=== PATIENT | female | born 1940 | race Caucasian/White ===

== ENCOUNTER 2017-12-15 10:05 | Day surgery (SDC) | payer OTHER ==
[~2017-12-15] VITALS: Ht 154.9 cm; Wt 81.8 kg
[~2017-12-15 10:05] MED LIST: ALLO100 PO; AMLO5; ASPI81CH PO; ATOR10 PO; BUME1 PO; BUME2 PO; CALC.25 PO; COLCHICINE0.6 MG; Ferrous Sulfat325 M2 PO; GLIP10ER PO; GLIP5; GLIP5ER PO; HYDACE5 PO; HYDR1TAB94 PO; Humalog100 UNIT/1 SC; INSULANI; INSULANI SUBQ; INSULANPEN SC; K-Tab10 MEQ PO; LEVSOD100 PO; LEVSOD125 PO; LISI5 PO; METF500 PO; METO100ER PO; METO50ER PO; OSTERA TABLET1 EACH PO; PANT40 PO; PRAV20 PO; PRED1; TOLT4 PO; TRAM50 PO; VITAMIN D32000 UNIT PO; [UNRECOGNIZED DRUG - REMARK]; [UNRECOGNIZED DRUG - REMARK]; [UNRECOGNIZED DRUG - REMARK]; [UNRECOGNIZED DRUG - REMARK]; [UNRECOGNIZED DRUG - REMARK]
[2017-12-15 10:47] LABS: Prothrombin Time Results 10.4 Sec (9.7-11.5)
== END 2017-12-15 22:41 | disposition home or self-care (01) ==
LOC: MHTC 10:05
PROVIDERS: Internal Medicine Interventional Cardiology
PROC: 065Q3ZZ Destruction of Left Saphenous Vein, Percutaneous Approach (ICD-10-PCS; principal; 2017-12-15)
DX: E11.51 Type 2 diabetes mellitus with diabetic peripheral angiopathy without gangrene (principal); I87.2 Venous insufficiency (chronic) (peripheral); E78.5 Hyperlipidemia, unspecified; E03.9 Hypothyroidism, unspecified; Z79.4 Long term (current) use of insulin
CPT/HCPCS: 36415; 36475; 85610; 99152; C1888; C1894; J1644; J2250; J3010; J7040

== ENCOUNTER → 2018-11-03 | Outpatient (CLI) | payer OTHER ==
[~2018-11-03] MED LIST changes: +Detrol LA2 MG PO; +LOSA25 PO
[2018-11-03 13:21] LABS: Creatinine, Urine Random 59.6 mg/dL (27.00-270.00); Protein, Urine Random 12.6 mg/dL (0.0-11.9)
== END | disposition home or self-care (01) ==
LOC: LAB SHORT 09:09 → LAB 09:09
PROVIDERS: Internal Medicine
DX: N18.3 Chronic kidney disease, stage 3 (moderate) (principal)
CPT/HCPCS: 82570; 84156

== ENCOUNTER 2019-01-13 12:02 | Day surgery (SDC) | payer OTHER ==
[~2019-01-13 12:02] MED LIST changes: -ASPI81CH PO; +Aspirin EC81 MG PO; -BUME1 PO; +Bumetanide1 MG PO; -K-Tab10 MEQ PO; +Klor-Con M1010 MEQ PO
== END 2019-01-13 23:27 | disposition home or self-care (01) ==
LOC: WOUND 12:02
DX: R60.0 Localized edema (principal)
CPT/HCPCS: G0463

== ENCOUNTER 2019-01-27 11:55 | Day surgery (SDC) | payer OTHER | END 2019-01-27 23:09 | disposition home or self-care (01) | LOC: WOUND 11:55 | DX: R60.0 Localized edema (principal); E11.42 Type 2 diabetes mellitus with diabetic polyneuropathy; E11.22 Type 2 diabetes mellitus with diabetic chronic kidney disease; N18.3 Chronic kidney disease, stage 3 (moderate); E11.51 Type 2 diabetes mellitus with diabetic peripheral angiopathy without gangrene; I73.9 Peripheral vascular disease, unspecified; I25.10 Atherosclerotic heart disease of native coronary artery without angina pectoris; E78.5 Hyperlipidemia, unspecified; E66.9 Obesity, unspecified; Z68.31 Body mass index [BMI] 31.0-31.9, adult | CPT/HCPCS: G0463 ==

== ENCOUNTER 2019-03-29 11:16 | Inpatient (IN) | payer OTHER ==
[~2019-03-29] VITALS: Ht 154.9 cm; Wt 86.4 kg
[2019-03-29 11:44] LABS: BASOPHILS ABSOLUTE AUTO 0.05 K/mm3 (0.00-0.23); BASOPHILS PERCENT AUTO 1 % (0-2); EOSINOPHILS ABSOLUTE AUTO 0.61 K/mm3 (0.00-0.68); EOSINOPHILS PERCENT AUTO 7 % (0-6); IMMATURE GRAN ABSOLUTE AUTO 0.03 K/mm3 (0.00-0.10); IMMATURE GRAN PERCENT AUTO 0 % (0-1); LYMPHOCYTES ABSOLUTE AUTO 1.29 K/mm3 (0.84-5.20); LYMPHOCYTES PERCENT AUTO 14 % (21-46); MONOCYTES ABSOLUTE AUTO 0.68 K/mm3 (0.16-1.47); MONOCYTES PERCENT AUTO 7 % (4-13); Mean Corpuscular HGB 31.1 pg (26.0-34.0); Mean Corpuscular HGB Conc 32.4 g/dL (31.5-36.5); Mean Corpuscular Volume 96 fL (80-100); Mean Platelet Volume 9.4 fL (9.1-12.4); NEUTROPHILS ABSOLUTE AUTO 6.76 K/mm3 (1.96-9.15); NEUTROPHILS PERCENT AUTO 72 % (41-73); Platelet Count 316 K/mm3 (150-400); RDW Coefficient Variation 13.2 % (11.7-14.2); RDW Standard Deviation 47.2 fL (35.1-46.3); Red Blood Cell Count 3.54 M/mm3 (3.80-5.20); White Blood Cell Count 9.42 K/mm3 (4.00-11.30)
[2019-03-29 12:03] LABS: Alanine Aminotransfer (ALT/SGP 23 U/L (12-78); Albumin, Blood 3.4 g/dL (3.4-5.0); Albumin/Globulin Ratio 0.9 (0.8-1.8); Alk Phos 170 U/L (50-136); Anion Gap 5 mmol/L (6-16); Aspartate Aminotrans (AST/SGOT 19 U/L (12-37); Bilirubin, Total 0.5 mg/dL (0.1-1.0); Blood Urea Nitrogen 31 mg/dL (8-24); Bun/Creatinine Ratio 16.8 (12.0-20.0); CO2, Blood 30 mmol/L (21-32); Calcium, Blood 9.2 mg/dL (8.5-10.1); Chloride, Blood 101 mmol/L (98-108); Creatinine, Blood 1.84 mg/dL (0.40-1.00); Globulin, Blood 3.9 g/dL (2.2-4.0); Glomerular Filtration Rate 28 (60-); Glucose, Blood 128 mg/dL (70-99); Potassium, Blood 4.9 mmol/L (3.5-5.5); Sodium, Blood 136 mmol/L (136-145); Total Protein, Blood 7.3 g/dL (6.4-8.2); Troponin I <0.015 ng/mL (0.000-0.040)
[2019-03-29] MEDS ORDERED: TRULICITY0.75 MG/0. SC (13:52)
[2019-03-29] MEDS ORDERED: PRENATAL + DHA1 EAC1 PO (13:53)
[2019-03-29] MEDS ORDERED: Magnesium500 M1 PO (13:53)
[2019-03-29] MEDS ORDERED: ASCO500 PO (13:54)
[2019-03-29 16:44] LABS: Source, Urine Catheter
[2019-03-29 16:47] LABS: Bilirubin, Urine Neg (Neg); Blood, Urine Neg (Neg); Glucose Qualitative, Urine Neg (Neg); Ketones, Urine Neg (Neg); Leukocyte Esterase, Urine Neg (Neg); Nitrite, Urine Neg (Neg); Protein, Urine Neg (Neg); Urobilinogen, Urine NORM (Normal)
[2019-03-29 17:03] LABS: Appearance, Urine Clear (Clear); Color, Urine Yellow (P-Yellow)
--- NOTE | 2019-03-29 18:58 | NUR ---
SHIFT SUMMARY PT A&OX4, 2LNC, REP OCC SOB, TCDB EDU & ENC. BEDREST, BLE ELEVATED. ONE TIME DOSE METROPROLOL 25 MG GIVEN FOR BP; PT REP NOT TAKING ANY OF HER MEDICATIONS TODAY. GARY PAIN TX'D WITH TYLENOL. ROSMERY PO, DENIES N&V. WEEKS PATENT & DRAINING YELLOW URINE. [address] WCTM & TX PER EMAR UNTIL REPORT GIVEN TO ONCOMING VINCE RN.
[2019-03-30 05:12] LABS: BASOPHILS ABSOLUTE AUTO 0.03 K/mm3 (0.00-0.23); BASOPHILS PERCENT AUTO 0 % (0-2); EOSINOPHILS PERCENT AUTO 6 % (0-6); Hematocrit 33.1 % (33.0-51.0); Hemoglobin 10.6 g/dL (11.5-16.0); IMMATURE GRAN ABSOLUTE AUTO 0.04 K/mm3 (0.00-0.10); IMMATURE GRAN PERCENT AUTO 1 % (0-1); LYMPHOCYTES PERCENT AUTO 15 % (21-46); MONOCYTES ABSOLUTE AUTO 0.87 K/mm3 (0.16-1.47); MONOCYTES PERCENT AUTO 10 % (4-13); Mean Corpuscular HGB 30.3 pg (26.0-34.0); Mean Corpuscular Volume 95 fL (80-100); Mean Platelet Volume 9.5 fL (9.1-12.4); NEUTROPHILS ABSOLUTE AUTO 6.02 K/mm3 (1.96-9.15); NEUTROPHILS PERCENT AUTO 69 % (41-73); Platelet Count 315 K/mm3 (150-400); RDW Coefficient Variation 13.4 % (11.7-14.2); RDW Standard Deviation 46.5 fL (35.1-46.3); White Blood Cell Count 8.76 K/mm3 (4.00-11.30)
[2019-03-30 05:31] LABS: Bun/Creatinine Ratio 15.7 (12.0-20.0); Calcium, Blood 8.9 mg/dL (8.5-10.1); Creatinine, Blood 1.98 mg/dL (0.40-1.00); Potassium, Blood 4.5 mmol/L (3.5-5.5)
--- NOTE | 2019-03-30 06:36 | NUR ---
SHIFT SUMMARY PT IS AN 89 Y/O FEMALE, ADMITTED FOR ACUTE CHF EXACERBATION. SHE IS A&O X 3, AND ON BEDREST. PT REPORTED SOME MILD PAIN IN HER CALVES, AND WAS MEDICATED WITH SCHEDULED ULTRAM AT BEDTIME. PT SLEPT WELL AFTER THAT WITH NO COMPLAINTS OF ACUTE PAIN, NAUSEA OR SOB. VITAL SIGNS STABLE. NO OTHER ACUTE CHANGES IN PT CONDITION NOTED. WILL CONTINUE TO MONITOR AND TREAT PER EMAR UNTIL HAND OFF TO DAY SHIFT RN.
--- NOTE | 2019-03-30 19:51 | NUR ---
SHIFT SUMMARY PATIENT HAD GOOD AMOUNT URINE OUTPUT, WEEKS REMOVED. BILAT LEG EDEMA IMPROVED. CALVES STILL PINK AND WARM TO TOUCH, R SLIGHTLY WORSE. LAST BM 03/28. PT WEANED OFF O2 NC. PT RECEIVED CORRECTIONAL SS HUMALOG FOR BREAKFAST AND LUNCH, BUT CBG WAS 63 FOR DINNER SO DID NOT RECEIVE INSULIN. PATIENT DRANK OJ AND ATE SOME DINNER AND CBG WAS 91. PT IS AMBULATING TO BATHROOM WITH WALKER AND 1 ASSIST, CALLING APPROPRIATELY.
--- NOTE | 2019-03-31 04:45 | NUR ---
SHIFT SUMMARY A/O, ABLE TO MAKE NEEDS KNOWN. COOPERATIVE WITH CARE. CALLS AND ANSWERS QUESTIONS APPROPRIATELY. C/O PAIN/RESTLESS LEGS; MEDICATED PER EMAR. APPEARED TO REST WELL OVERNIGHT. UP WITH FWW TO BATHROOM. VSS/AFEBRILE. NO ACUTE CHANGES NOTED OVERNIGHT. BED REMAINS IN LOWEST POSITION. CALL LIGHT AND BELONGINGS WITHIN REACH. WCTM. REPORT TO ONCOMING RN.
[2019-03-31 04:57] LABS: Base Excess Venous 9.1 mmol/L; PCO2 Venous 41.2 mmHg (38-42); PO2 Venous 65.9 mmHg (38-42)
[2019-03-31 04:58] LABS: BASOPHILS ABSOLUTE AUTO 0.04 K/mm3 (0.00-0.23); BASOPHILS PERCENT AUTO 0 % (0-2); EOSINOPHILS ABSOLUTE AUTO 0.85 K/mm3 (0.00-0.68); EOSINOPHILS PERCENT AUTO 9 % (0-6); Hematocrit 33.3 % (33.0-51.0); Hemoglobin 10.5 g/dL (11.5-16.0); IMMATURE GRAN ABSOLUTE AUTO 0.06 K/mm3 (0.00-0.10); IMMATURE GRAN PERCENT AUTO 1 % (0-1); LYMPHOCYTES ABSOLUTE AUTO 1.61 K/mm3 (0.84-5.20); LYMPHOCYTES PERCENT AUTO 18 % (21-46); MONOCYTES ABSOLUTE AUTO 1.03 K/mm3 (0.16-1.47); MONOCYTES PERCENT AUTO 11 % (4-13); Mean Corpuscular HGB 30.2 pg (26.0-34.0); Mean Corpuscular HGB Conc 31.5 g/dL (31.5-36.5); Mean Corpuscular Volume 96 fL (80-100); Mean Platelet Volume 9.4 fL (9.1-12.4); NEUTROPHILS ABSOLUTE AUTO 5.61 K/mm3 (1.96-9.15); NEUTROPHILS PERCENT AUTO 61 % (41-73); Platelet Count 287 K/mm3 (150-400); RDW Coefficient Variation 13.4 % (11.7-14.2); RDW Standard Deviation 46.6 fL (35.1-46.3); Red Blood Cell Count 3.48 M/mm3 (3.80-5.20)
[2019-03-31 05:23] LABS: Bun/Creatinine Ratio 15.8 (12.0-20.0); Creatinine, Blood 2.22 mg/dL (0.40-1.00); Potassium, Blood 4.8 mmol/L (3.5-5.5)
[2019-03-31 05:31] LABS: Free Thyroxine 1.5 ng/dL (0.70-1.60); Thyroid Stimulating Hormone 0.764 uIU/mL (0.360-4.800); Triiodothyronine, Free 1.85 pg/mL (2.18-3.98)
--- NOTE | 2019-03-31 16:11 | NUR ---
ASSUMED CARE: PT RESTING QUIETLY AT THIS TIME. NO ACUTE DISTRESS OR NEEDS NOTED
--- NOTE | 2019-03-31 17:31 | NUR ---
Spiritual Care intial note: Daria was welcoming of prayer and spiritual encouragement. She lives alone, but her son is visiting from [place] this week. I broached the subject of advanced care palnning, and she was initially receptive to allowing me to help her complete POLST. She told me she is not afraid of dying, and did not want CPR if her heart were to faulter/stop. She then became rather sullen and said she did not want to finish POLST. I immediately changes subjects, and we spoke about her love and pride for her son. She will benefit from further discussion around ACP at some point. Novelty Twister Tender Services will remain available.
--- NOTE | 2019-03-31 17:55 | NUR ---
PT RETURNED FROM PROCEDURE. DROWSY, BUT ANSWERING QUESTIONS. NAUSEATED WITH 100CC YELLOW EMESIS NOTED. ZOFRAN PROVIDED. POST OP VITALS AT THIS TIME
--- NOTE | 2019-03-31 18:04 | NUR ---
SHIFT SUMMARY: SITTING UPRIGHT IN BED EATING DINNER AT THIS TIME. LUNG SOUNDS WITH FINE CRACKLES BUT DENIES NEEDS OR CONCERNS AT THIS TIME.
--- NOTE | 2019-04-01 04:04 | NUR ---
Shift summary: pt states she's feeling much better. No respiratory distress noted. Pt has been sleeping most of shift. Pt anticipating d/c in am.
[2019-04-01 05:09] LABS: Bun/Creatinine Ratio 15.4 (12.0-20.0); Calcium, Blood 8.9 mg/dL (8.5-10.1); Creatinine, Blood 2.8 mg/dL (0.40-1.00); Potassium, Blood 5.1 mmol/L (3.5-5.5)
--- NOTE | 2019-04-01 18:26 | NUR ---
SHIFT SUMMARY PER GROUND SURVEILLANCE SYSTEMS OPERATOR, PATIENT'S TELE RHYTHM CHANGED DURING THE MORNING OF 03/31, TO A.FIB. GROUND SURVEILLANCE SYSTEMS OPERATOR NOT ABLE TO TELL EXACTLY THE TIME, SHE STATES AROUND [id number]. DR VALVERDE STATED HE WAS NOT NOTIFIED OF THIS UNTIL THIS MORNING 04/01. PT IS IN A CONTROLLED RATE A.FIB, SIMILAR TO HER PREVIOUS NSR RATE. RHYTHM CONFIRMED WITH TWO PRINTED STRIPS THIS MORNING. DR VALVERDE WAS GOING TO DC PT BUT HE SWITCHED HER LOVENOX FOR XARELTO, FIRST DOSE GIVEN TODAY. XARELTO SAMPLES OBTAINED FROM CARDIAC OFFICE PER DR VALVERDE'S REQUEST AND PLACED IN PT'S MED DRAWER. PT AMBULATING WITH FWW AND STATES HER DIZZINESS WHEN WALKING HAS DECREASED. DENIES PAIN, SOB, NAUSEA. BLE STILL PINK, PITTED, WITH +2 EDEMA, PT STATES IS CHRONIC.
--- NOTE | 2019-04-02 03:53 | NUR ---
Shift summary: Pt slept well overnight with no c/o discomfort. Pt on telemetry. Pt still in afib in the 50's per telecommunications manager. Pt slept part of night in chair- states its easier to breath. No changes in condition noted overnight.
[2019-04-02 05:24] LABS: Bun/Creatinine Ratio 15.8 (12.0-20.0); Calcium, Blood 8.8 mg/dL (8.5-10.1); Creatinine, Blood 3.29 mg/dL (0.40-1.00); Magnesium, Blood 2.5 mg/dL (1.6-2.4); Potassium, Blood 5.2 mmol/L (3.5-5.5)
[2019-04-02 14:59] LABS: Bilirubin, Urine Neg (Neg); Blood, Urine Neg (Neg); Glucose Qualitative, Urine Neg (Neg); Ketones, Urine Neg (Neg); Leukocyte Esterase, Urine 1+ (Neg); Nitrite, Urine Neg (Neg); Protein, Urine Neg (Neg); Specific Gravity, Urine 1.015 (1.003-1.022); Urobilinogen, Urine NORM (Normal)
[2019-04-02 15:06] LABS: Appearance, Urine Hazy (Clear); Color, Urine Pale Yellow (P-Yellow)
[2019-04-02 15:07] LABS: Bacteria Few /hpf; Red Blood Cells, Urine 0-2 /hpf (0-2); Squamous Epithelial Cells Many /hpf (Few); White Blood Cells, Urine 0-2 /hpf (0-5)
--- NOTE | 2019-04-02 17:21 | NUR ---
SHIFT SUMMARY NO CHANGE IN PATIENT MENTATION OR LEG EDEMA/SYMPTOMS. PATIENT'S KIDNEY FUNCTION IS DECREASED, SO DR CHAMORRO CONSULTED. UA COMPLETED, SMALL AMOUNT OF FLUIDS INFUSED, BLADDER SCAN DONE, AND DAILY WEIGHTS WILL BE DONE. ELIQUIS ORDERED INSTEAD OF XARELTO. XARELTO SAMPLES STILL IN DRAWER. THE CARDIAC OFFICE IS ASSUMED TO BE CLOSED UNTIL THURSDAY. CALL BUTTON IN REACH. WILL CONTINUE TO MONITOR.
--- NOTE | 2019-04-03 04:19 | NUR ---
Shift summary: Pt lungs dimished at bases but no crackles heard. No s/s respiratory distress. VSS. Pt on telemetry- afib at 60. Pt up in chair sleeping most of shift. Pt states it's easier to breath that way. Pt anticipating a possible d/c today.
[2019-04-03 04:35] LABS: BASOPHILS ABSOLUTE AUTO 0.03 K/mm3 (0.00-0.23); BASOPHILS PERCENT AUTO 0 % (0-2); EOSINOPHILS ABSOLUTE AUTO 1.01 K/mm3 (0.00-0.68); EOSINOPHILS PERCENT AUTO 11 % (0-6); Hematocrit 32.3 % (33.0-51.0); Hemoglobin 10.2 g/dL (11.5-16.0); IMMATURE GRAN ABSOLUTE AUTO 0.02 K/mm3 (0.00-0.10); IMMATURE GRAN PERCENT AUTO 0 % (0-1); LYMPHOCYTES ABSOLUTE AUTO 2.32 K/mm3 (0.84-5.20); LYMPHOCYTES PERCENT AUTO 26 % (21-46); MONOCYTES PERCENT AUTO 9 % (4-13); Mean Corpuscular HGB 30.6 pg (26.0-34.0); Mean Corpuscular HGB Conc 31.6 g/dL (31.5-36.5); Mean Corpuscular Volume 97 fL (80-100); Mean Platelet Volume 9.6 fL (9.1-12.4); NEUTROPHILS ABSOLUTE AUTO 4.81 K/mm3 (1.96-9.15); NEUTROPHILS PERCENT AUTO 54 % (41-73); Platelet Count 290 K/mm3 (150-400); RDW Coefficient Variation 13.4 % (11.7-14.2); RDW Standard Deviation 47.8 fL (35.1-46.3); Red Blood Cell Count 3.33 M/mm3 (3.80-5.20); White Blood Cell Count 8.99 K/mm3 (4.00-11.30)
[2019-04-03 05:03] LABS: Bun/Creatinine Ratio 16.8 (12.0-20.0); Calcium, Blood 8.5 mg/dL (8.5-10.1); Creatinine, Blood 3.52 mg/dL (0.40-1.00); Magnesium, Blood 2.5 mg/dL (1.6-2.4); Phosphorus, Blood 4.7 mg/dL (2.5-4.9); Potassium, Blood 5.3 mmol/L (3.5-5.5)
--- NOTE | 2019-04-03 19:16 | NUR ---
SHIFT SUMMARY NO NEW CHANGES WITH PATIENT. STILL SOMEWHAT UNSTEADY WITH WALKING IN ROOM PER PT, PT ENCOURAGED TO CALL WHEN GETTING UP AND CHAIR/BED ALARMS ON. BLOOD SUGAR LOW THIS MORNING, OJ GIVEN, DR AWARE. LANTUS DOSE LOWERED. ANTICIPATING DC TOMORROW.
--- NOTE | 2019-04-04 04:23 | NUR ---
Shift summary: Pt slept well overnight. No sig changes in condition. No respiratory distress noted. VSS. Pt on telemetry- AFIB 55 per telephone services sales representative. Pt is hopefully anticipating d/c in am.
[2019-04-04 05:26] LABS: Bun/Creatinine Ratio 19.6 (12.0-20.0); Calcium, Blood 8.6 mg/dL (8.5-10.1); Creatinine, Blood 2.96 mg/dL (0.40-1.00); Potassium, Blood 5.3 mmol/L (3.5-5.5)
--- NOTE | 2019-04-04 07:25 | NUR ---
ASSUMED CARE OF PT- RECIEVED REPORT FROM NIGHT CARRI TIJERINA. PT ON TELE RUNNING SLOW A-FIB, THIS GERBER NEW ONSET OVER THE LAST 2 DAYS PER REPORT. PER SENIOR ELECTRICAL DESIGNER [place] PT RUNNING AFIB AT 56. LUNG SOUNDS ARE CLEAR DIM IN THE BASES, PT ON A FLUID RESTRICTION. PER REPORT PT RENAL FUNCTION IS DECLINING. WILL REVIEW LABS SHORTLY.
[2019-04-04] MEDS ORDERED: ELIQUIS2.5 MG PO (13:45)
[2019-04-04] MEDS ORDERED: Humalog Mi100 UNIT/4 SC (13:48)
[2019-04-04] MEDS ORDERED: TROSPIUM CHLORI20 MG PO (13:55)
--- NOTE | 2019-04-04 15:26 | NUR ---
DISCHARGE NOTE- PT DISCHARGED HOME. PT WAS GIVEN VERBAL AND WRITTEN DISCHARGE INSTRUCTIONS BY THE PROGRAM PROPOSALS COORDINATOR LORI. PT IV AND TELE DC'D PRIOR TO DISCHARGE. PT HAD NO FURTHER QUESTIONS AT THE TIME OF DISCHARGE AND WAS ESCORTED OUT VIA W/C BY THE PROGRAM PROPOSALS COORDINATOR LORI.
--- NOTE | 2019-04-11 19:59 | NUR ---
MEDS LEFT IN DRAWER, HAD TO FIND OUT IF THEY BELONGED TO HER OR NOT. THEY DID NOT.
== END 2019-04-04 14:38 | disposition home or self-care (01) | DRG 291 ==
LOC: ER 11:16 → MEDS 14:38 → ENPENDDIS 04-04 10:41 → MEDS 04-04 14:38
PROVIDERS: Emergency Medicine; Internal Medicine; ADMIT Internal Medicine
DX: I13.0 Hypertensive heart and chronic kidney disease with heart failure and stage 1 through stage 4 chronic kidney disease, or unspecified chronic kidney disease (principal); I50.33 Acute on chronic diastolic (congestive) heart failure; E87.3 Alkalosis; E87.1 Hypo-osmolality and hyponatremia; N17.9 Acute kidney failure, unspecified; Z79.82 Long term (current) use of aspirin; Z79.4 Long term (current) use of insulin; E78.5 Hyperlipidemia, unspecified; E11.51 Type 2 diabetes mellitus with diabetic peripheral angiopathy without gangrene; E03.9 Hypothyroidism, unspecified; I87.2 Venous insufficiency (chronic) (peripheral); E11.40 Type 2 diabetes mellitus with diabetic neuropathy, unspecified; M70.61 Trochanteric bursitis, right hip; N18.3 Chronic kidney disease, stage 3 (moderate); E11.22 Type 2 diabetes mellitus with diabetic chronic kidney disease; D63.1 Anemia in chronic kidney disease; M10.9 Gout, unspecified; N32.81 Overactive bladder
CPT/HCPCS: 36415; 51702; 71046; 80048; 80053; 81001; 81003; 82803; 82947; 83735; 83880; 84100; 84439; 84443; 84481; 84484; 85025; 93005; 93010; 93306; 96374-59; 97110; 97162; 97530; 99285-25; A9270; J1650; J1940; J7120

== ENCOUNTER 2019-06-13 16:39 | Emergency (ER) | payer OTHER ==
[~2019-06-13] VITALS: Ht 154.9 cm; Wt 83.0 kg
[~2019-06-13 16:39] MED LIST changes: +ASCO500 PO; +ELIQUIS2.5 MG PO; +Humalog Mi100 UNIT/4 SC; +Magnesium500 M1 PO; +PRENATAL + DHA1 EAC1 PO; +TROSPIUM CHLORI20 MG PO; +TRULICITY0.75 MG/0. SC
[2019-06-13 18:03] LABS: BASOPHILS ABSOLUTE AUTO 0.07 K/mm3 (0.00-0.23); BASOPHILS PERCENT AUTO 1 % (0-2); EOSINOPHILS ABSOLUTE AUTO 0.58 K/mm3 (0.00-0.68); EOSINOPHILS PERCENT AUTO 8 % (0-6); Hematocrit 32.6 % (33.0-51.0); Hemoglobin 10.5 g/dL (11.5-16.0); IMMATURE GRAN ABSOLUTE AUTO 0.03 K/mm3 (0.00-0.10); IMMATURE GRAN PERCENT AUTO 0 % (0-1); LYMPHOCYTES ABSOLUTE AUTO 1.58 K/mm3 (0.84-5.20); LYMPHOCYTES PERCENT AUTO 21 % (21-46); MONOCYTES ABSOLUTE AUTO 0.69 K/mm3 (0.16-1.47); MONOCYTES PERCENT AUTO 9 % (4-13); Mean Corpuscular HGB 31.5 pg (26.0-34.0); Mean Corpuscular HGB Conc 32.2 g/dL (31.5-36.5); Mean Corpuscular Volume 98 fL (80-100); Mean Platelet Volume 9.7 fL (9.1-12.4); NEUTROPHILS ABSOLUTE AUTO 4.42 K/mm3 (1.96-9.15); NEUTROPHILS PERCENT AUTO 60 % (41-73); Platelet Count 239 K/mm3 (150-400); RDW Coefficient Variation 14.1 % (11.7-14.2); RDW Standard Deviation 50.8 fL (35.1-46.3); Red Blood Cell Count 3.33 M/mm3 (3.80-5.20); White Blood Cell Count 7.37 K/mm3 (4.00-11.30)
[2019-06-13 18:27] LABS: Alanine Aminotransfer (ALT/SGP 15 U/L (12-78); Albumin, Blood 2.9 g/dL (3.4-5.0); Albumin/Globulin Ratio 0.8 (0.8-1.8); Alk Phos 132 U/L (50-136); Anion Gap 7 mmol/L (6-16); Aspartate Aminotrans (AST/SGOT 18 U/L (12-37); Bilirubin, Total 0.4 mg/dL (0.1-1.0); Blood Urea Nitrogen 35 mg/dL (8-24); Bun/Creatinine Ratio 17.4 (12.0-20.0); CO2, Blood 30 mmol/L (21-32); Calcium, Blood 8.9 mg/dL (8.5-10.1); Chloride, Blood 97 mmol/L (98-108); Creatinine, Blood 2.01 mg/dL (0.40-1.00); Globulin, Blood 3.5 g/dL (2.2-4.0); Glomerular Filtration Rate 25 (60-); Glucose, Blood 195 mg/dL (70-99); Potassium, Blood 4.6 mmol/L (3.5-5.5); Sodium, Blood 134 mmol/L (136-145); Total Protein, Blood 6.4 g/dL (6.4-8.2); Troponin I <0.015 ng/mL (0.000-0.040)
[2019-06-13] MEDS ORDERED: CEPH500 PO (20:52)
== END 2019-06-13 21:19 | disposition home or self-care (01) ==
LOC: ER 16:39
PROVIDERS: Physician Assistant
DX: L03.115 Cellulitis of right lower limb (principal); M79.89 Other specified soft tissue disorders; N28.9 Disorder of kidney and ureter, unspecified; E11.40 Type 2 diabetes mellitus with diabetic neuropathy, unspecified; I10 Essential (primary) hypertension; E78.5 Hyperlipidemia, unspecified; E11.21 Type 2 diabetes mellitus with diabetic nephropathy; Z88.8 Allergy status to other drugs, medicaments and biological substances; Z88.1 Allergy status to other antibiotic agents; Z88.2 Allergy status to sulfonamides; Z79.899 Other long term (current) drug therapy; Z79.82 Long term (current) use of aspirin; Z79.4 Long term (current) use of insulin; Z79.01 Long term (current) use of anticoagulants
CPT/HCPCS: 36415; 71046; 80053; 83880; 84484; 85025; 93005; 93010; 99284-25

== ENCOUNTER → 2019-06-29 | Outpatient (CLI) | payer OTHER ==
[~2019-06-29] MED LIST changes: +CEPH500 PO
[2019-06-29 16:07] LABS: Protein, Urine Random 26.1 mg/dL (0.0-11.9)
== END | disposition home or self-care (01) ==
LOC: EDSTATUS 09:23 → LAB 13:50 → LAB SHORT 13:50
PROVIDERS: Internal Medicine
DX: N17.9 Acute kidney failure, unspecified (principal)
CPT/HCPCS: 82570; 84156

== ENCOUNTER 2019-07-06 11:05 | Inpatient (IN) | payer OTHER ==
[~2019-07-06] VITALS: Ht 154.9 cm; Wt 84.1 kg
[~2019-07-06 11:05] MED LIST changes: -ALLO100 PO; -Aspirin EC81 MG PO; -Bumetanide1 MG PO; -ELIQUIS2.5 MG PO; -INSULANPEN SC; -LEVSOD125 PO; -VITAMIN D32000 UNIT PO
[2019-07-06 12:30] LABS: BASOPHILS ABSOLUTE AUTO 0.06 K/mm3 (0.00-0.23); BASOPHILS PERCENT AUTO 1 % (0-2); EOSINOPHILS ABSOLUTE AUTO 0.59 K/mm3 (0.00-0.68); EOSINOPHILS PERCENT AUTO 7 % (0-6); Hematocrit 32.9 % (33.0-51.0); Hemoglobin 10.1 g/dL (11.5-16.0); IMMATURE GRAN ABSOLUTE AUTO 0.02 K/mm3 (0.00-0.10); IMMATURE GRAN PERCENT AUTO 0 % (0-1); LYMPHOCYTES ABSOLUTE AUTO 1.07 K/mm3 (0.84-5.20); LYMPHOCYTES PERCENT AUTO 12 % (21-46); MONOCYTES ABSOLUTE AUTO 0.86 K/mm3 (0.16-1.47); MONOCYTES PERCENT AUTO 10 % (4-13); Mean Corpuscular HGB 30.4 pg (26.0-34.0); Mean Corpuscular HGB Conc 30.7 g/dL (31.5-36.5); Mean Corpuscular Volume 99 fL (80-100); Mean Platelet Volume 10.2 fL (9.1-12.4); NEUTROPHILS ABSOLUTE AUTO 6.23 K/mm3 (1.96-9.15); NEUTROPHILS PERCENT AUTO 71 % (41-73); Platelet Count 227 K/mm3 (150-400); RDW Coefficient Variation 15.5 % (11.7-14.2); RDW Standard Deviation 56.3 fL (35.1-46.3); Red Blood Cell Count 3.32 M/mm3 (3.80-5.20); White Blood Cell Count 8.83 K/mm3 (4.00-11.30)
[2019-07-06] MEDS ORDERED: POTA10T PO (12:45)
[2019-07-06] MEDS ORDERED: METO2.5 PO (12:45)
[2019-07-06] MEDS ORDERED: Bumetanide1 MG PO (12:46)
[2019-07-06] MEDS ORDERED: PANTOPRAZOLE SO40 M2 PO (12:47)
[2019-07-06] MEDS ORDERED: LEVSOD125 PO (12:48)
[2019-07-06] MEDS ORDERED: ALLO100 PO (12:50)
[2019-07-06] MEDS ORDERED: ELIQUIS2.5 MG PO (12:51)
[2019-07-06] MEDS ORDERED: VITAMIN D32000 UNIT PO (12:52)
[2019-07-06] MEDS ORDERED: Aspirin EC81 MG PO (12:52)
[2019-07-06] MEDS ORDERED: FERSU300 PO (12:52)
[2019-07-06 12:59] LABS: Bun/Creatinine Ratio 21.6 (12.0-20.0); Calcium, Blood 9.2 mg/dL (8.5-10.1); Creatinine, Blood 2.08 mg/dL (0.40-1.00); Potassium, Blood 5.3 mmol/L (3.5-5.5)
[2019-07-06] MEDS ORDERED: INSULANPEN SC (13:21)
[2019-07-06 18:26] LABS: Source, Urine Clean Catch
[2019-07-06 18:32] LABS: Bilirubin, Urine Neg (Neg); Blood, Urine 5+ (Neg); Glucose Qualitative, Urine Neg (Neg); Ketones, Urine Neg (Neg); Leukocyte Esterase, Urine 3+ (Neg); Nitrite, Urine Neg (Neg); Protein, Urine 2+ (Neg); Urobilinogen, Urine NORM (Normal)
[2019-07-06 19:01] LABS: Appearance, Urine Hazy (Clear); Color, Urine Yellow (P-Yellow)
[2019-07-06 19:03] LABS: Bacteria Many /hpf; Mucus Light (0-Heavy); Squamous Epithelial Cells Mod /hpf (Few)
--- NOTE | 2019-07-06 19:31 | NUR ---
PT. RESTING QUIETLY AFTER EATING DINNER, DENIES PAIN OR NAUSEA. PT. UP TO BSC AND URINE SENT FOR UA. NO NOTEABLE CHANGES. BLE ELEVATED ON PILLOWS WITH WHITE CHUX UNDER THE CALVES, FOOT CRADLE IN PLACE TO KEEP THE COVERS OFF THEM. WOUND ON RIGHT HIP WITH MEPILEX IN PLACE, SAYS SHE GOT IT WHEN SHE FELL.
--- NOTE | 2019-07-07 04:19 | NUR ---
SHIFT SUMMARY DANIEL'S LS WERE CLR T/O AND BT+ X4. DANIEL GOT UP TO BSC X4 THIS SHIFT AND VOIDED. HER BLE'S ALSO LEAKING FLUID BUT SHE SAID HER LEGS ARE DOING MUCH BETTER THAN WHEN SHE FIRST GOT HERE. SHE C/O PAIN ESPECIALLY IN THE RLE WHICH HAS MORE EDEMA AND REDNESS THAN THE LEFT. THIS RN OFFERED HER TYLENOL OR TO CALL THE HOSPITALIST FOR SOMETHING STRONGER, BUT SHE DIDN'T WANT ME TO BRING HER TYLENOL OR HAVE ME CALL THE HOSPITALIST. I THEN REMINDED HER SHE HAS TRAZODONE AVAILABLE IF SHE NEEDS HELP WITH SLEEPING IF SHE IS IN PAIN. SHE DIDN'T WANT TRAZODONE EITHER SHE STATED SHE CAN GO TO SLEEP ON HER OWN. SHE APPEARS TO BE SLEEPING WHENEVER SHE IS CHECKED ON T/O THE NIGHT EXCEPT WHEN GETTING UP TO BSC AND WHEN IV'S HAD TO BE STARTED. HER BS WAS 231 AT HS AND SHE RECEIVED 2 UNITS HUMALOG INSULIN WITH NO ASE NOTED.
[2019-07-07 05:29] LABS: BASOPHILS ABSOLUTE AUTO 0.04 K/mm3 (0.00-0.23); BASOPHILS PERCENT AUTO 1 % (0-2); EOSINOPHILS ABSOLUTE AUTO 0.57 K/mm3 (0.00-0.68); EOSINOPHILS PERCENT AUTO 7 % (0-6); Hematocrit 29.3 % (33.0-51.0); Hemoglobin 8.9 g/dL (11.5-16.0); IMMATURE GRAN ABSOLUTE AUTO 0.03 K/mm3 (0.00-0.10); IMMATURE GRAN PERCENT AUTO 0 % (0-1); LYMPHOCYTES ABSOLUTE AUTO 1.08 K/mm3 (0.84-5.20); LYMPHOCYTES PERCENT AUTO 13 % (21-46); MONOCYTES ABSOLUTE AUTO 1.04 K/mm3 (0.16-1.47); MONOCYTES PERCENT AUTO 12 % (4-13); Mean Corpuscular HGB 29.6 pg (26.0-34.0); Mean Corpuscular HGB Conc 30.4 g/dL (31.5-36.5); Mean Corpuscular Volume 97 fL (80-100); Mean Platelet Volume 10.1 fL (9.1-12.4); NEUTROPHILS ABSOLUTE AUTO 5.64 K/mm3 (1.96-9.15); NEUTROPHILS PERCENT AUTO 67 % (41-73); Platelet Count 200 K/mm3 (150-400); RDW Coefficient Variation 15.4 % (11.7-14.2); RDW Standard Deviation 54.4 fL (35.1-46.3); Red Blood Cell Count 3.01 M/mm3 (3.80-5.20)
[2019-07-07 05:51] LABS: Albumin, Blood 2.8 g/dL (3.4-5.0); Albumin/Globulin Ratio 0.9 (0.8-1.8); Bilirubin, Total 0.8 mg/dL (0.1-1.0); Bun/Creatinine Ratio 20.5 (12.0-20.0); Calcium, Blood 8.9 mg/dL (8.5-10.1); Globulin, Blood 3.1 g/dL (2.2-4.0); Total Protein, Blood 5.9 g/dL (6.4-8.2)
--- NOTE | 2019-07-07 06:06 | NUR ---
UPON ASSESSMENT OF PT, PT CAN GET TO BSC C SBA TO VOID. DOES NOT NEED PROTOCOL WEEKS CATH FOR I&O, OR SKIN BREAKDOWN OR INCONTINENCE OR IMMOBILITY. DISCUSSED IT WITH PRINTED CIRCUIT LAYOUT TAPER STACY AND SHE AGREES WITH ASSESSMENT.
--- NOTE | 2019-07-07 18:32 | NUR ---
PT. LYING QUIETLY AFTER EATING DINNER, REPORTS PAIN IN RLE IS UNDER CONTROL AT THIS TIME. PT. MALCOM CHRISTOPHER BECAME EXCRUCIATINGLY PAINFUL AROUND 1000 THIS AM. SHE WAS CRYING IN PAIN AND JUST LAYING MY HAND ON THE LOWER EXTREMETY MADE HER CRY OUT. REPORTED WORSE IN CALF THAN DE ANDA AREA. EXTREMITY RED AND SWOLLEN , CALLED DR. MORRIS FOR PAIN MEDICATION AND LET HIM KNOW MY CONCERN SHE MIGHT HAVE A BLOOD CLOT. US ORDERED MORPHINE GIVEN BEFORE THE US BUT PT. STILL VERY PAINFUL AND THE TECH WAS UNSUCCESSFUL IN ATTAING THE US R/T TO PT'S PAIN. NOTIFIED DR. MORRIS, HE INCREASED MORPHINE BUT WAS STILL UNABLE TO DO US. NOTIFIED DRR. MORRIS, HE ORDERED A SURGICAL CONSULT TO SEE IF PT. HAD COMPARTMENT SYNDROME AND THEN ORDERED CT.
--- NOTE | 2019-07-08 04:10 | NUR ---
SHIFT SUMMARY DANIEL'S LS WERE CLR T/O AND BT+. DANIEL HAD A VERY HARD DAY YESTERDAY D/T SEVERE PAIN IN HER BLE'S. THE DAY SHIFT RN RECEIVED AN ORDER FOR MORPHINE SULFATE YESTERDAY. THIS RN GAVE HER 1 DOSE OF MORPHINE AT 2044 WHICH WAS EFFECTIVE AND SHE HAS BEEN SLEEPING ON AND OFF T/O THE NIGHT. DURING ONE OF THE TIMES SHE WAS AWAKE, SHE STATED HER BLE'S FEEL SO MUCH BETTER AND DIDN'T HURT NEARLY BAD BEFORE. WE WILL CON'T TO MONITOR HER BLE'S AND THE PAIN/SWELLING SHE HAS BEEN EXPERIENCING THE LAST COUPLE DAYS.
[2019-07-08 09:40] LABS: BASOPHILS ABSOLUTE AUTO 0.03 K/mm3 (0.00-0.23); BASOPHILS PERCENT AUTO 0 % (0-2); EOSINOPHILS ABSOLUTE AUTO 0.88 K/mm3 (0.00-0.68); EOSINOPHILS PERCENT AUTO 11 % (0-6); Hematocrit 32.6 % (33.0-51.0); Hemoglobin 10.1 g/dL (11.5-16.0); IMMATURE GRAN ABSOLUTE AUTO 0.02 K/mm3 (0.00-0.10); IMMATURE GRAN PERCENT AUTO 0 % (0-1); LYMPHOCYTES ABSOLUTE AUTO 0.87 K/mm3 (0.84-5.20); LYMPHOCYTES PERCENT AUTO 11 % (21-46); MONOCYTES ABSOLUTE AUTO 0.78 K/mm3 (0.16-1.47); MONOCYTES PERCENT AUTO 10 % (4-13); Mean Corpuscular HGB 30.3 pg (26.0-34.0); Mean Corpuscular Volume 98 fL (80-100); Mean Platelet Volume 10.1 fL (9.1-12.4); NEUTROPHILS ABSOLUTE AUTO 5.23 K/mm3 (1.96-9.15); NEUTROPHILS PERCENT AUTO 67 % (41-73); Platelet Count 212 K/mm3 (150-400); RDW Coefficient Variation 15.3 % (11.7-14.2); RDW Standard Deviation 55.1 fL (35.1-46.3); Red Blood Cell Count 3.33 M/mm3 (3.80-5.20); White Blood Cell Count 7.81 K/mm3 (4.00-11.30)
[2019-07-08 09:55] LABS: Bun/Creatinine Ratio 21.1 (12.0-20.0); Calcium, Blood 9.1 mg/dL (8.5-10.1); Creatinine, Blood 1.94 mg/dL (0.40-1.00); Potassium, Blood 4.5 mmol/L (3.5-5.5)
--- NOTE | 2019-07-08 18:02 | NUR ---
SHIFT SUMMARY PATIENT IS PLEASANT, ALERT AND ORIENTED. NO ACUTE CONCERNS. PAIN MANAGEMENT THROUGHOUT THE DAY. WILL ASSESS FOR CHANGES.
--- NOTE | 2019-07-08 20:51 | NUR ---
PT C/O OF 6/10 PAIN TO BLE UNRESOLVED BY 2 MG MORPHINE. IF NO RELIEF, WILL REPORT TO HOSPITALIST FOR FURTHER ORDERS.
[2019-07-09 05:06] LABS: BASOPHILS ABSOLUTE AUTO 0.02 K/mm3 (0.00-0.23); BASOPHILS PERCENT AUTO 0 % (0-2); EOSINOPHILS ABSOLUTE AUTO 0.92 K/mm3 (0.00-0.68); EOSINOPHILS PERCENT AUTO 12 % (0-6); Hematocrit 31.6 % (33.0-51.0); Hemoglobin 9.8 g/dL (11.5-16.0); IMMATURE GRAN ABSOLUTE AUTO 0.03 K/mm3 (0.00-0.10); IMMATURE GRAN PERCENT AUTO 0 % (0-1); LYMPHOCYTES ABSOLUTE AUTO 1.66 K/mm3 (0.84-5.20); LYMPHOCYTES PERCENT AUTO 22 % (21-46); MONOCYTES ABSOLUTE AUTO 0.88 K/mm3 (0.16-1.47); MONOCYTES PERCENT AUTO 12 % (4-13); Mean Corpuscular HGB 30.4 pg (26.0-34.0); Mean Corpuscular Volume 98 fL (80-100); Mean Platelet Volume 10.1 fL (9.1-12.4); NEUTROPHILS ABSOLUTE AUTO 3.89 K/mm3 (1.96-9.15); NEUTROPHILS PERCENT AUTO 53 % (41-73); Platelet Count 233 K/mm3 (150-400); RDW Coefficient Variation 15.3 % (11.7-14.2); RDW Standard Deviation 55.4 fL (35.1-46.3); Red Blood Cell Count 3.22 M/mm3 (3.80-5.20)
--- NOTE | 2019-07-09 05:22 | NUR ---
TELEMETRY EVENT PT AFIB IN THE 120s, THIS RN NOTIFIED BY JESUS ACEVEDO. CHECKED ON PT, WHO IS UP AND AROUND ROOM WITH BRANCH ASSOCIATE. HR TRENDING BACK DOWN AT THIS TIME. WILL CONT TO MONITOR.
[2019-07-09 05:43] LABS: Creatinine, Blood 2.05 mg/dL (0.40-1.00); Potassium, Blood 4.6 mmol/L (3.5-5.5)
--- NOTE | 2019-07-09 06:05 | NUR ---
CLINICAL PROVIDER TRAINER SUMMARY PT A/O X4. PLEASANT AND COOPERATIVE. MEDICATED ONCE THIS SHIFT FOR PAIN. PT SLEPT WELL THROUGH THE NIGHT AND PAIN HAS BEEN TOLERABLE SINCE MEDICATED. PT BLOOD SUGAR WAS 88 AT THE BEGINNING OF SHIFT, 360 ML OF ORANGE JUICE WAS GIVEN TO PT. PT BLOOD SUGAR TAKEN EARLY THIS MORNING CAME TO 58. PT IN NO DISTRESS AND DENIES ANY SYMPTOMS. PT WAS GIVEN 360 ML OF OJ WITH 2 PACKS OF SUGAR AND A PACK OF ROMULO CRACKERS SPREAD OF HONEY AND WAS EDUCATED THE DANGERS OF LOW BLOOD SUGAR. PT GOT UP A FEW TIMES TO THE BATHROOM WITH ASSISTANCE. PT ALSO STATED THIS MORNING THAT SHE "CAN LIFT UP HER RIGHT LEG" WHICH SHE HAVEN'T BEEN ABLE TO SINCE ADMISSION FROM CELLULITIS. CALLS APPROPRIATELY. WILL RE-ASSESS BLOOD SUGAR.
--- NOTE | 2019-07-09 18:35 | NUR ---
PATIENT UP WITH FWW AND 1 ASSIST TO CHAIR. CONTINENT OF URINE/STOOL. VSS, ON RA. REDNESS AND SWELLING TO BLE. BUMEX ORDERED TID. POOR APPETITE, TREATED NAUSEA WITH ZOFRAN AND PHENERGAN. PATIENT IS A/OX4, CALM AND COOPERATIVE WITH CARE. 2MG MORPHINE GIVEN X1 THIS SHIFT FOR LEG PAIN. ACHS BLOOD SUGARS, NO COVERAGE NEEDED. 20G IV TO L AC WNL AND SL.
[2019-07-10 04:46] LABS: BASOPHILS ABSOLUTE AUTO 0.04 K/mm3 (0.00-0.23); BASOPHILS PERCENT AUTO 1 % (0-2); EOSINOPHILS ABSOLUTE AUTO 1.13 K/mm3 (0.00-0.68); EOSINOPHILS PERCENT AUTO 15 % (0-6); Hematocrit 34.5 % (33.0-51.0); IMMATURE GRAN ABSOLUTE AUTO 0.02 K/mm3 (0.00-0.10); IMMATURE GRAN PERCENT AUTO 0 % (0-1); LYMPHOCYTES ABSOLUTE AUTO 1.06 K/mm3 (0.84-5.20); LYMPHOCYTES PERCENT AUTO 14 % (21-46); MONOCYTES ABSOLUTE AUTO 1.06 K/mm3 (0.16-1.47); MONOCYTES PERCENT AUTO 14 % (4-13); Mean Corpuscular HGB 30.9 pg (26.0-34.0); Mean Corpuscular HGB Conc 31.9 g/dL (31.5-36.5); Mean Corpuscular Volume 97 fL (80-100); NEUTROPHILS ABSOLUTE AUTO 4.16 K/mm3 (1.96-9.15); NEUTROPHILS PERCENT AUTO 56 % (41-73); Platelet Count 220 K/mm3 (150-400); RDW Coefficient Variation 15.4 % (11.7-14.2); RDW Standard Deviation 54.9 fL (35.1-46.3); Red Blood Cell Count 3.56 M/mm3 (3.80-5.20); White Blood Cell Count 7.47 K/mm3 (4.00-11.30)
[2019-07-10 05:12] LABS: Bun/Creatinine Ratio 17.9 (12.0-20.0); Calcium, Blood 8.8 mg/dL (8.5-10.1); Creatinine, Blood 2.12 mg/dL (0.40-1.00); Potassium, Blood 4.6 mmol/L (3.5-5.5)
--- NOTE | 2019-07-10 06:07 | NUR ---
SHIFT SUMMARY AT START OF SHIFT CBG LOW AT 57. PT DRANK APPLE JUICE AND SUGAR PACKET MIX. CBG AT 71 THIS AM. TREATED FOR BLE CELLULITIS PAIN WITH 2MG IV MORPHINE, PROVIDES RELIEF. BLE ARE RED AND SWOLLEN, RLE > LLE. PT SLEPT WELL THROUGH THE NIGHT. WILL CONT TO MONITOR AND PROVIDE CARE UNTIL PRESUMED BY ONCOMING RN.
--- NOTE | 2019-07-10 16:40 | NUR ---
SHIFT SUMMARY NO ACUTE CHANGES THIS SHIFT. PT HAS DENIED PAIN DURING THIS SHIFT. PT HAS HAD A POOR APETITE DURING THIS SHIFT, CHANGED LANTUS ORDER TO BED TIME. PT REPORTED LAST BM WAS 07/05/2019 AND COMPLIANED OF HAVING PAIN DURING BM AND UNABLE TO PASS, FLEET ENEMA GIVEN WITH RESULTS. WILL COUNTINUE TO MONITOR THIS SHIFT AND REPORT TO NOC RN. CALL LIGHT WITH IN REACH.
--- NOTE | 2019-07-10 18:31 | NUR ---
SHIFT SUMMARY PT COMPLIANED OF PAIN AND MEDICATED X1 AND X1 FOR NAUSEA.
[2019-07-11 06:22] LABS: Calcium, Blood 8.6 mg/dL (8.5-10.1); Creatinine, Blood 2.33 mg/dL (0.40-1.00); Potassium, Blood 4.1 mmol/L (3.5-5.5)
--- NOTE | 2019-07-11 14:03 | NUR ---
Initial palliative care consult: Daria is an 79 year old lady with a history of DM, CHF, a-fib, PVD, and chronic cellulitis in her RLE. She was admitted on 07/06/19 for RLE cellulitis and swelling. Her son, Inder, and friend, iVpin, are at the bedside during my visit. Daria lives alone and is having more difficulty recently with managing her home and care. She ambulates with her walker and hangs on to things in her home for stability. Her son Inder lives in [place], her friend Vipin lives nearby and checks on her. She doesn't currently have any in home caregivers although she is interested in this option. Daria wants to go home. She doesn't want to go anywhere else. She is struggling with the thought of losing some of her independence and this makes her tearful. She does acknowledge that she is not able to do the things she once did. Discussed options for a safe discharge plan. Waiting on a PT/OT consult for direction as to what assistance she will need upon discharge. Nursing reports she is not ambulating and requires staff assistance to get OOB. She would like to go home with HH services, however SNF may be good option if PT/OT recommend it. She is hesitant to consider the SNF option despite her son and friend who are hopeful that she will qualify to go to SNF. Information given on life alert system per Dallin's request. Information also given on medcure as Daria states she wishes to donate her body to science when she passes away. LLOYD Tay, also visited during my visit and encouraged Daria to start the medicaid process. Information on [facility] care application also requested for Daria by Vipin. Maggi states she will get that packet for Daria. Daria and Inder request that a POLST and AD be completed. Explained POLST and AD and both forms filled out and MD and witness signatures obtained. Copies taken for [facility] records and also made for Inder and Vipin. Original POLST and AD left with Daria. Encouraged Daria to consider thinking about safe discharge plan and planning ahead for the future for her care needs if she becomes unable to care for herself and to not be able to live independently anymore. Will await PT/OT eval for discharge recommendations. SNF for rehab if she qualifies would be a safe discharge plan. HH would be another option, however she does live alone and her son Inder is having knee surgery in [place] this coming so she will not have 24 hour caregiver support available to her putting her at risk for injuries or a readmission. Inder contacted the state this morning to start the medicaide process for Daria. AD and POLST completed. Discharge plan TBD. Pt reports leg cellulitis is "much better." states PO antibiotics at discharge will likely be the plan unless pt goes to rehab where she could continue IV antibiotics. PC to continue to follow.
--- NOTE | 2019-07-11 16:25 | NUR ---
Spiritual Care inital note: Asked by Raine with Palliative Care to asist with completion of Advanced Directive for pt. Son and pt's best friend present. Daria became tearful once document completed. Son states she is "easily overwhelmed." Provided prayer and gentle rehabilitation counselor to pt with good effect. Friend and son appear loving/devoted. I will remain available.
--- NOTE | 2019-07-11 18:45 | NUR ---
PT. UP IN CHAIR FOR MOST OF DAY. ASSISTED TO BATHROOM, UNSTEADY ON FEET. PT. HAS DENIED PAIN OR NAUSEA TODAY. POSSIBLE DISCHARGE HOME WITH H.H. TOMORROW. PT. CODE STATUS CHANGED TO DNR TODAY.. PT. BLE STILL RED AND SWOLLEN.
--- NOTE | 2019-07-12 04:54 | NUR ---
SUPERVISOR OPERATIONS SUMMARY PT A/O X4. PLEASANT AND COOPERATIVE. PT COMPLAINED OF PAIN IN LOWER RIGHT LEG 01/10. DENIED NAUSEA AND DIZZINESS AT BEGINNING OF SHIFT. MEDICATED FOR PAIN PER EMAR ONCE. PT SLEPT WELL THROUGH THE NIGHT AFTER THAT. PT STATED SHE "THREW UP" THIS MORNING WHEN SHE WENT TO THE BATHROOM. PT STATED SHE STILL FELT NAUSEOUS AFTER THROWING UP. PT DESCRIBED IT "BILE" LIKE. PT DENIED OTHER DISCOMFORTS. ZOFRAN PO GIVEN. VSS, WILL CONTINUE TO MONITOR.
--- NOTE | 2019-07-12 19:05 | NUR ---
PT. UP IN CHAIR FOR DINNER AND WATCHING TV, PT. BECAME TEARFUL AND WEEPY BECAUSE SHE'S GOING HOME TOMORROW. AMBULATED IN YOUNGBLOOD WITH PT AND A 4 WHEEL WALKER. TOLERATED WELL. POSSIBLE DISCHARGE HOME TOMORROW WITH HH. FRIEND KYLIE TO PICK HER UP AROUND 1500 TOMORROW. PT. HAS HAD 2 BOUTS OF NAUSEA TODAY FOR WHICH SHE WAS GIVEN PO ZOFRAN, NEVER DID HAVE EMESIS..
--- NOTE | 2019-07-13 03:22 | NUR ---
FLAT SCREEN WORKER SUMMARY PT A/O X4. FRIENDLY AND FOLLOWS DIRECTION. PT COMPLAINED OF PAIN IN BLE 01/10. WAS MEDICATED FOR PAIN X1 THIS SHIFT. SEE EMAR. PT STATED PAIN IS CONTROLLED WHEN RE-ASSESSED. SLEPT WELL THROUGHOUT THE NIGHT. CALLS APPROPRIATELY. NO ACUTE CHANGES. WILL CONTINUE TO MONITOR.
[2019-07-13 05:41] LABS: BASOPHILS ABSOLUTE AUTO 0.04 K/mm3 (0.00-0.23); BASOPHILS PERCENT AUTO 1 % (0-2); EOSINOPHILS ABSOLUTE AUTO 0.83 K/mm3 (0.00-0.68); EOSINOPHILS PERCENT AUTO 11 % (0-6); Hematocrit 33.1 % (33.0-51.0); Hemoglobin 10.7 g/dL (11.5-16.0); IMMATURE GRAN ABSOLUTE AUTO 0.03 K/mm3 (0.00-0.10); IMMATURE GRAN PERCENT AUTO 0 % (0-1); LYMPHOCYTES PERCENT AUTO 13 % (21-46); MONOCYTES ABSOLUTE AUTO 0.83 K/mm3 (0.16-1.47); MONOCYTES PERCENT AUTO 11 % (4-13); Mean Corpuscular HGB Conc 32.3 g/dL (31.5-36.5); Mean Platelet Volume 9.8 fL (9.1-12.4); NEUTROPHILS ABSOLUTE AUTO 4.78 K/mm3 (1.96-9.15); NEUTROPHILS PERCENT AUTO 64 % (41-73); Platelet Count 258 K/mm3 (150-400); RDW Coefficient Variation 15.1 % (11.7-14.2); RDW Standard Deviation 51.3 fL (35.1-46.3); Red Blood Cell Count 3.57 M/mm3 (3.80-5.20); White Blood Cell Count 7.51 K/mm3 (4.00-11.30)
[2019-07-13 05:43] LABS: Mean Corpuscular Volume 93 fL (80-100)
[2019-07-13 05:54] LABS: Albumin, Blood 2.8 g/dL (3.4-5.0); Anion Gap 7 mmol/L (6-16); Blood Urea Nitrogen 35 mg/dL (8-24); Bun/Creatinine Ratio 15.5 (12.0-20.0); CO2, Blood 34 mmol/L (21-32); Calcium, Blood 8.8 mg/dL (8.5-10.1); Chloride, Blood 95 mmol/L (98-108); Creatinine, Blood 2.26 mg/dL (0.40-1.00); Glomerular Filtration Rate 22 (60-); Glucose, Blood 97 mg/dL (70-99); Phosphorus, Blood 2.5 mg/dL (2.5-4.9); Potassium, Blood 3.3 mmol/L (3.5-5.5); Sodium, Blood 136 mmol/L (136-145)
[2019-07-13] MEDS ORDERED: BASAGLAR K100 UNIT/1 SC (10:40)
[2019-07-13] MEDS ORDERED: ACET325 PO (10:41)
[2019-07-13] MEDS ORDERED: BISA5EC PO (10:43)
[2019-07-13] MEDS ORDERED: LEVFLO500 PO (10:44)
[2019-07-13] MEDS ORDERED: METR250 PO (10:44)
[2019-07-13] MEDS ORDERED: ONDA4ODT MM (10:45)
[2019-07-13] MEDS ORDERED: HYDR1TAB94 PO (10:45)
[2019-07-13] MEDS ORDERED: SENN187 PO (10:46)
[2019-07-13] MEDS ORDERED: Florastor250 MG PO (10:46)
--- NOTE | 2019-07-13 12:00 | NUR ---
ASSUMED CARE OF PT. FROM Jovan LOMBARDO, AGREE WITH ASSESSMENT WRITTEN BY PREVIOUS RN.
--- NOTE | 2019-07-13 16:15 | NUR ---
PT. DISCHARGED HOME WITH HOME HEALTH. PT'S FRIEND KYLIE TOOK HER HOME UPON THE PT'S DISCHARGE. PT'S MEDS WERE FAXED TO [facility] IN [place] BY PREVIOUS RN. PT. SAID IT WAS OKAY AND THEY WOULD PICK THE MEDS UP THERE. ENCOURAGED TO KEEP FOLLOWUP APPOINTMENTS AND TAKE MEDS ORDERED AND TO USE FALL PRECAUTIONS.
== END 2019-07-13 16:17 | disposition home health service (06) | DRG 603 ==
LOC: ER 11:05 → MEDS 15:29 → ENPENDDIS 07-13 09:30 → MEDS 07-13 16:17
PROVIDERS: Emergency Medicine; ADMIT Family Medicine
DX: L03.115 Cellulitis of right lower limb (principal); I48.20 Chronic atrial fibrillation, unspecified; N39.0 Urinary tract infection, site not specified; I13.0 Hypertensive heart and chronic kidney disease with heart failure and stage 1 through stage 4 chronic kidney disease, or unspecified chronic kidney disease; L03.116 Cellulitis of left lower limb; E11.22 Type 2 diabetes mellitus with diabetic chronic kidney disease; D63.1 Anemia in chronic kidney disease; E11.40 Type 2 diabetes mellitus with diabetic neuropathy, unspecified; K21.9 Gastro-esophageal reflux disease without esophagitis; E11.51 Type 2 diabetes mellitus with diabetic peripheral angiopathy without gangrene; N18.3 Chronic kidney disease, stage 3 (moderate); B96.20 Unspecified Escherichia coli [E. coli] as the cause of diseases classified elsewhere; B95.2 Enterococcus as the cause of diseases classified elsewhere; I87.2 Venous insufficiency (chronic) (peripheral); I50.9 Heart failure, unspecified; Z79.4 Long term (current) use of insulin
CPT/HCPCS: 36415; 73700; 80048; 80053; 80069; 81001; 82947; 83036; 85025; 87040; 87077; 87086; 87186; 90686; 96365; 96366; 97110; 97116; 97162; 97165; 97530; 97535; 99284-25; A9270; J0881; J1956; J2270; J2550; J3370; J7030

== ENCOUNTER 2019-07-16 20:13 | Emergency (ER) | payer OTHER ==
[~2019-07-16] VITALS: Ht 154.9 cm; Wt 83.0 kg
[~2019-07-16 20:13] MED LIST changes: +ACET325 PO; +ALLO100 PO; +Aspirin EC81 MG PO; +BASAGLAR K100 UNIT/1 SC; +BISA5EC PO; +Bumetanide1 MG PO; +ELIQUIS2.5 MG PO; +FERSU300 PO; +Florastor250 MG PO; +INSULANPEN SC; +LEVFLO500 PO; +LEVSOD125 PO; +METO2.5 PO; +METR250 PO; +ONDA4ODT MM; +PANTOPRAZOLE SO40 M2 PO; +POTA10T PO; +SENN187 PO; +VITAMIN D32000 UNIT PO
[2019-07-16 21:02] LABS: BASOPHILS ABSOLUTE AUTO 0.05 K/mm3 (0.00-0.23); BASOPHILS PERCENT AUTO 1 % (0-2); EOSINOPHILS ABSOLUTE AUTO 0.38 K/mm3 (0.00-0.68); EOSINOPHILS PERCENT AUTO 5 % (0-6); Hematocrit 36.7 % (33.0-51.0); IMMATURE GRAN ABSOLUTE AUTO 0.03 K/mm3 (0.00-0.10); IMMATURE GRAN PERCENT AUTO 0 % (0-1); LYMPHOCYTES ABSOLUTE AUTO 1.43 K/mm3 (0.84-5.20); LYMPHOCYTES PERCENT AUTO 19 % (21-46); MONOCYTES ABSOLUTE AUTO 0.86 K/mm3 (0.16-1.47); MONOCYTES PERCENT AUTO 11 % (4-13); Mean Corpuscular HGB Conc 32.7 g/dL (31.5-36.5); Mean Corpuscular Volume 92 fL (80-100); Mean Platelet Volume 9.9 fL (9.1-12.4); NEUTROPHILS ABSOLUTE AUTO 4.95 K/mm3 (1.96-9.15); NEUTROPHILS PERCENT AUTO 64 % (41-73); Platelet Count 268 K/mm3 (150-400); RDW Coefficient Variation 15.3 % (11.7-14.2); RDW Standard Deviation 51.3 fL (35.1-46.3)
[2019-07-16 21:21] LABS: Alanine Aminotransfer (ALT/SGP 16 U/L (12-78); Albumin, Blood 3.3 g/dL (3.4-5.0); Albumin/Globulin Ratio 0.9 (0.8-1.8); Alk Phos 107 U/L (50-136); Anion Gap 10 mmol/L (6-16); Aspartate Aminotrans (AST/SGOT 39 U/L (12-37); Bilirubin, Total 0.8 mg/dL (0.1-1.0); Blood Urea Nitrogen 39 mg/dL (8-24); Bun/Creatinine Ratio 17.1 (12.0-20.0); CO2, Blood 29 mmol/L (21-32); Calcium, Blood 8.7 mg/dL (8.5-10.1); Chloride, Blood 91 mmol/L (98-108); Creatinine, Blood 2.28 mg/dL (0.40-1.00); Globulin, Blood 3.6 g/dL (2.2-4.0); Glomerular Filtration Rate 22 (60-); Glucose, Blood 206 mg/dL (70-99); Potassium, Blood 3.8 mmol/L (3.5-5.5); Sodium, Blood 130 mmol/L (136-145); Total Protein, Blood 6.9 g/dL (6.4-8.2); Troponin I <0.015 ng/mL (0.000-0.040)
== END 2019-07-16 23:36 | disposition home or self-care (01) ==
LOC: ER 20:13
PROVIDERS: Physician Assistant
DX: R20.2 Paresthesia of skin (principal); E83.42 Hypomagnesemia; I13.0 Hypertensive heart and chronic kidney disease with heart failure and stage 1 through stage 4 chronic kidney disease, or unspecified chronic kidney disease; E11.22 Type 2 diabetes mellitus with diabetic chronic kidney disease; N18.3 Chronic kidney disease, stage 3 (moderate); I50.9 Heart failure, unspecified; E11.40 Type 2 diabetes mellitus with diabetic neuropathy, unspecified; E11.51 Type 2 diabetes mellitus with diabetic peripheral angiopathy without gangrene; I73.9 Peripheral vascular disease, unspecified; I48.91 Unspecified atrial fibrillation; K21.9 Gastro-esophageal reflux disease without esophagitis; E78.5 Hyperlipidemia, unspecified; E03.9 Hypothyroidism, unspecified; Z88.8 Allergy status to other drugs, medicaments and biological substances; Z88.1 Allergy status to other antibiotic agents; Z88.2 Allergy status to sulfonamides; Z79.899 Other long term (current) drug therapy; Z79.82 Long term (current) use of aspirin; Z79.01 Long term (current) use of anticoagulants; Z79.4 Long term (current) use of insulin
CPT/HCPCS: 36415; 71046; 80053; 83735; 84484; 85025; 93005; 93010; 96365; 99284-25; J3475

== ENCOUNTER → 2019-07-19 | Outpatient (CLI) | payer OTHER ==
[2019-07-19 18:18] LABS: Hemoglobin 11.5 g/dL (11.5-16.0)
[2019-07-19 18:26] LABS: Albumin, Blood 3.3 g/dL (3.4-5.0); Anion Gap 9 mmol/L (6-16); Blood Urea Nitrogen 39 mg/dL (8-24); Bun/Creatinine Ratio 15.5 (12.0-20.0); CO2, Blood 31 mmol/L (21-32); Calcium, Blood 8.7 mg/dL (8.5-10.1); Chloride, Blood 91 mmol/L (98-108); Creatinine, Blood 2.52 mg/dL (0.40-1.00); Glomerular Filtration Rate 19 (60-); Glucose, Blood 143 mg/dL (70-99); Phosphorus, Blood 2.8 mg/dL (2.5-4.9); Potassium, Blood 3.3 mmol/L (3.5-5.5); Sodium, Blood 131 mmol/L (136-145)
== END ==
LOC: LAB SHORT 15:20 → LAB HH 15:20
PROVIDERS: Internal Medicine
DX: N17.9 Acute kidney failure, unspecified (principal)
CPT/HCPCS: 80069; 85014; 85018

== ENCOUNTER 2019-09-19 12:01 | Emergency (ER) | payer OTHER ==
[~2019-09-19] VITALS: Ht 154.9 cm; Wt 81.2 kg
[2019-09-19] MEDS ORDERED: Ultram50 MG PO (13:31)
== END 2019-09-19 15:49 | disposition home or self-care (01) ==
LOC: ER 12:01
DX: S40.011A Contusion of right shoulder, initial encounter (principal); E11.51 Type 2 diabetes mellitus with diabetic peripheral angiopathy without gangrene; I73.9 Peripheral vascular disease, unspecified; I13.0 Hypertensive heart and chronic kidney disease with heart failure and stage 1 through stage 4 chronic kidney disease, or unspecified chronic kidney disease; E11.22 Type 2 diabetes mellitus with diabetic chronic kidney disease; N18.3 Chronic kidney disease, stage 3 (moderate); I50.9 Heart failure, unspecified; E11.40 Type 2 diabetes mellitus with diabetic neuropathy, unspecified; E78.5 Hyperlipidemia, unspecified; E03.9 Hypothyroidism, unspecified; K21.9 Gastro-esophageal reflux disease without esophagitis; I48.91 Unspecified atrial fibrillation; Z88.8 Allergy status to other drugs, medicaments and biological substances; Z88.1 Allergy status to other antibiotic agents; Z88.2 Allergy status to sulfonamides; Z79.899 Other long term (current) drug therapy; Z79.82 Long term (current) use of aspirin; Z79.01 Long term (current) use of anticoagulants; Z79.4 Long term (current) use of insulin; W18.30XA Fall on same level, unspecified, initial encounter
CPT/HCPCS: 73030; 73080; 96372; 99283-25; J3010